=== PATIENT | female | born 2000 | race Two or more races ===

== ENCOUNTER 2025-08-07 14:44 | Emergency (ER) | payer OTHER ==
[~2025-08-07] VITALS: Ht 152.4 cm; Wt 49.9 kg
[2025-08-07] MEDS ORDERED: LIDOCAINE 1% INJ 50 ML MDV IJ ONE (17:35)
[2025-08-07] MEDS ORDERED: TDAP [DIPH/PERTUSSIS/TET] 0.5 ML VIAL IM ONE (17:50)
[2025-08-07] MEDS ORDERED: CEFAZOLIN 1 GM VIAL IM ONE (18:00)
[2025-08-07] MEDS ORDERED: ANCEF 1 GM/50 ML D5W IV ONE (18:00)
[2025-08-07] MEDS: TDAP [DIPH/PERTUSSIS/TET] 0.5 ML VIAL IM ONE (18:04)
[2025-08-07] MEDS: CEFAZOLIN 1 GM VIAL IM ONE (18:32)
[2025-08-07] MEDS ORDERED: CEPH-570 PO (20:00)
[2025-08-07] MEDS ORDERED: IBUP-1490 PO (20:00)
[2025-08-07] MEDS: IBUPROFEN 600 MG TABLET PO ONE (20:08)
[2025-08-07 21:04] VITALS: BP 120/70; TEMP 98.4; O2SAT 99
== END 2025-08-07 21:05 | disposition home or self-care (01) ==
LOC: ER 16:28
DX: S92.512B Displaced fracture of proximal phalanx of left lesser toe(s), initial encounter for open fracture (principal); S16.1XXA Strain of muscle, fascia and tendon at neck level, initial encounter; S33.9XXA Sprain of unspecified parts of lumbar spine and pelvis, initial encounter; V98.8XXA Other specified transport accidents, initial encounter; Y93.89 Activity, other specified; Y92.89 Other specified places as the place of occurrence of the external cause; Y99.8 Other external cause status
CPT/HCPCS: 28515; 70450; 71045; 72125; 72131; 73630; 73660; 90471; 90715; 96372; 99285; A6403; J0690; J3490; J7060